=== PATIENT | female | born 1980 | race Hispanic/Latino ===

== ENCOUNTER 2022-05-14 06:10 | Emergency (ER) | payer BC ==
[~2022-05-14] VITALS: Ht 152.4 cm; Wt 55.3 kg
[2022-05-14] MEDS ORDERED: NAPROSYN500 MG PO (07:21)
== END 2022-05-14 08:02 | disposition home or self-care (01) ==
LOC: FSED 06:55
DX: M25.562 Pain in left knee (principal)
CPT/HCPCS: 99283

== ENCOUNTER 2025-05-10 15:15 | Emergency (ER) | payer BC ==
[~2025-05-10] VITALS: Ht 152.4 cm; Wt 59.6 kg
[2025-05-10 15:15] VITALS: PULSE 72; RESP 18; TEMP 98.8; O2SAT 95
[~2025-05-10 15:15] MED LIST: NAPROSYN500 MG PO
[2025-05-10] MEDS ORDERED: IBUPROFEN 600 MG TAB ONE (15:57)
[2025-05-10] MEDS: IBUPROFEN 600 MG TAB PO STA (16:13)
== END 2025-05-10 16:28 | disposition home or self-care (01) ==
LOC: FSED 15:40
DX: M79.671 Pain in right foot (principal); S90.31XA Contusion of right foot, initial encounter; W20.8XXA Other cause of strike by thrown, projected or falling object, initial encounter; Y92.89 Other specified places as the place of occurrence of the external cause
CPT/HCPCS: 99284